=== PATIENT | female | born 1970 | race African-American/Black ===

== ENCOUNTER 2018-09-29 15:20 | Emergency (ER) | payer SELFPAY ==
[~2018-09-29] VITALS: Ht 149.9 cm; Wt 63.0 kg
[2018-09-29] MEDS ORDERED: KETOROLAC 30MG/ML VIAL IV STA (18:24)
[2018-09-29] MEDS ORDERED: SODIUM CHLORIDE 0.9% 1,000 ML IV ONE (18:24)
[2018-09-29 19:24] LABS: BASOPHILS % 0.6 % (0.0-2.0); EOSINOPHILS % 1.9 % (0.0-5.0); HEMATOCRIT. 40.5 % (36.0-48.0); HEMOGLOBIN. 13.3 g/dL (12.0-16.0); LYMPHOCYTES % 47.4 % (20.0-50.0); MEAN CORPUSCULAR HEMOGLOBIN 31.2 pg (28.0-32.0); MEAN CORPUSCULAR VOLUME 95.1 fL (81.0-99.0); MEAN PLATELET VOLUME 8.2 fl (7.4-10.4); MONOCYTES % 7.8 % (2.0-8.0); NEUTROPHILS % 42.3 % (40.0-76.0); PLATELET 263 x1000/uL (130-400); RED BLOOD CELL COUNT 4.26 mill/uL (4.2-5.4); RED CELL DISTRIBUTION WIDTH 14.8 % (11.6-14.6)
[2018-09-29 19:25] LABS: CHLORIDE 105 mEq/L (98-107)
[2018-09-29] MEDS ORDERED: HYDROCODONE/ACETAMINOPHEN 5/325MG TABLET PO ONE (19:45)
[2018-09-29 20:08] LABS: HCG SCREEN NEGATIVE
[2018-09-29 21:03] VITALS: BP 130/67
== END 2018-09-29 21:11 | disposition home or self-care (01) ==
LOC: ER 16:40
DX: R55 Syncope and collapse (principal); S40.011A Contusion of right shoulder, initial encounter; I10 Essential (primary) hypertension; I25.2 Old myocardial infarction; R94.31 Abnormal electrocardiogram [ECG] [EKG]; Z90.89 Acquired absence of other organs; Z88.0 Allergy status to penicillin; W01.0XXA Fall on same level from slipping, tripping and stumbling without subsequent striking against object, initial encounter; Y93.89 Activity, other specified; Y92.018 Other place in single-family (private) house as the place of occurrence of the external cause
CPT/HCPCS: 36415; 71045; 73030; 80053; 84484; 84703; 85025; 93005; 96360; 99284; J1885; J7030; Z7610